=== PATIENT | male | born 1955 | race Caucasian/White ===

== ENCOUNTER 2018-06-26 10:12 | Outpatient (CLI) | payer OTHER, SELFPAY ==
[2018-06-26 12:38] LABS: Abs Immature Grans 0.03 k/cumm (0.0-0.09); Absolute Basophil Count 0.03 k/cumm (0.0-0.2); Absolute Eosinophil Count 0.18 k/cumm (0.0-0.7); Absolute Lymphocyte Count 2.25 k/cumm (1.2-3.4); Absolute Monocyte Count 0.64 k/cumm (0.11-0.7); Absolute Neutrophil Count 3.48 k/cumm (1.2-6.7); Basophils % 0.5; Eosinophils % 2.7; HCT 43.8 % (40.0-50.0); HGB 14.3 g/dL (13.5-17.5); Immature Grans % 0.5; Mean Corp. HGB Concentration 32.6 g/dL (32.0-36.0); Mean Corpuscular Hemoglobin 28.2 pg (27.0-33.0); Mean Corpuscular Volume 86.4 fL (80-95); Mean Platelet Volume 9.6 fL (8.0-11.0); Monocytes % 9.7; Neutrophils % 52.6; Platelet Count 256 x1000/uL (130-400); RBC 5.07 m/cumm (4.50-6.00); RBC Distribution Width 14.7 % (11.8-14.1); White Blood Cell Count 6.61 k/cumm (4.4-10.8)
[2018-06-26 13:11] LABS: ALT 28 U/L (12-78); AST 19 U/L (15-37); Albumin 3.7 g/dL (3.4-5.0); Alkaline Phosphatase 85 U/L (46-116); Anion Gap 6.4 mmol/L (3-11); BUN 17 mg/dL (7-18); Bilirubin, Total 0.6 mg/dL (0.2-1.0); CO2 31.6 mmol/L (21.0-32.0); CREATININE 1.21 mg/dL (0.70-1.30); Calcium 9.5 mg/dL (8.5-10.1); Chloride 101 mmol/L (98-107); Glucose 122 mg/dL (70-100); Potassium 4.4 mmol/L (3.5-5.1); Sodium 139 mmol/L (136-145); Total Protein 7.3 g/dL (6.4-8.2)
[2018-06-27 14:34] LABS: PSA, Screening 1.5 ng/ml (0-4.5)
== END 2018-06-26 10:32 ==
PROVIDERS: PCP Internal Medicine; Visit Provider Internal Medicine
DX: Z00.00 Encounter for general adult medical examination without abnormal findings (principal); E11.9 Type 2 diabetes mellitus without complications; Z12.5 Encounter for screening for malignant neoplasm of prostate
CPT/HCPCS: 36415; 80053; 84153; 85025

== ENCOUNTER 2018-12-23 09:04 | Outpatient (CLI) | payer OTHER, SELFPAY ==
[2018-12-23 11:29] LABS: Calculated LDL 111 mg/dL; Cholesterol 186 mg/dL (50-200); HDL Cholesterol 65 mg/dL (40-60); Triglyceride 54 mg/dL (30-150)
[2018-12-23 11:31] LABS: Hemoglobin A1C 7.8 % (4.5-6.2)
== END 2018-12-23 09:24 ==
PROVIDERS: PCP Internal Medicine; Visit Provider Internal Medicine
DX: E11.9 Type 2 diabetes mellitus without complications (principal)
CPT/HCPCS: 36415; 80061; 83036

== ENCOUNTER 2019-03-31 08:02 | Day surgery (SDC) | payer OTHER, SELFPAY ==
--- NOTE | 2019-03-31 08:07 | W.COLOREPORT ---
Date of service: 03/31/19 Time of Service: : Colonoscopy Report Date of procedure: 03/31/19 Pre-op diagnosis general: colon cancer screening, family history of colon cancer Post-op diagnosis procedure note: other (polyps and diverticulosis) Procedure: Colonoscopy with polypectomy Surgeon: Shannon Rasheed Anesthesia proc note operative: other (General/ ASA 2/Adalberto Joseph, INA) Estimated blood loss (mL): 3 Pathology: other (Transverse polyps x2) Complications: None Disposition: same day Indications: The patient is here for Colonoscopy pre-op. His last screening was in 2008 and was unremarkable. He has a family history of colon cancer in his mother. He has not had any bowel habit changes. Prep: Miralax/Dulcolax Procedure Start Time: : Procedure End Time: :50 Retraction Time: 20 minutes Findings: 2 small polyps mild iniguez diverticulosis Procedure Description: After informed consent was obtained the patient was taken to the procedure room and placed in a left decubitous position. Monitors were applied and a time out was done. The patients name, date of , procedure, allergies to medications and metal in their body was reviewed. The patient was then sedated. Once sedated and comfortable a rectal exam was done. External exam was normal. Internal exam revealed a normal sphincter tone and no palpable masses. The prostate felt smooth. The scope was then introduced and retro-flexed. No internal hemorrhoids, masses or polyps were identified on retro-flexion. The scope was then advanced to the cecum without difficulty. The TI and appendiceal orifice were identified. The prep was adequate. The scope was then slowly retracted over 20 minutes back into the rectum. Polyps were removed with cold forceps in the Transverse colon. There was mild iniguez-diverticulosis noted as well. The scope was removed and the patient was woken up and taken back to Same day surgery in stable condition. The patient tolerated the procedure well and there were no immediate complications. Follow up: The patient should follow up in 3-5 years unless they develop changes in bowel habits or other new gastrointestinal complaints.
--- NOTE | 2019-03-31 08:08 | PDOC.DSDIS_ITS ---
Discharge Plan Disposition Patient Disposition: HOME Condition: Good Discharge Details Reason For Visit: colon cancer screening Attending Provider: Shannon Rasheed Primary Care Provider: Charu Torres Home Meds and New Rx's Prescriptions: Continued omega-3 fatty acids [Fish Oil Concentrate] 1,000 mg capsule 1,000 mg PO DAILY RF: 0 vitamin B complex [B Complex-Vitamin B12] Tablet 1 tab PO DAILY RF: 0 glipizide 5 mg tablet extended release 24hr 5 mg PO DAILY Qty: 90 RF: 4 metformin 1,000 mg tablet 1,000 mg PO BID Qty: 180 RF: 3 (DME) OneTouch Ultra Blue Test Strip strip See Dose Instructions .ROUTE .MEDSUPPLY Qty: 100 RF: 2 CertaVite Senior-Antioxidant 1 EACH tablet 1 ea PO DAILY Qty: 100 RF: 4 (DME) lancets [OneTouch UltraSoft Lancets] misc 1 ea Miscellaneous DAILY Qty: 100 RF: 3 pantoprazole 40 mg tablet,delayed release (DR/EC) 40 mg PO DAILY PRN Qty: 90 RF: 4 Discontinued polyethylene glycol 3350 17 gram/dose powder 238 g PO ONCE Qty: 238 RF: 0 bisacodyl [Dulcolax (bisacodyl)] 5 mg tablet,delayed release (DR/EC) 5 mg PO ONCE Qty: 4 RF: 0 Discharge Instructions Instructions: Diverticulosis (DC), Colorectal Polyps (DC) Additional Instructions: Findings: 2 small polyps mild diverticulosis Follow up: 3-5 years depending on pathology results Please call if you develop: fevers >101.5 Nausea or Vomiting Abdominal pain that is not transient DAY SURGERY UNIT POST ENDOSCOPY INSTRUCTIONS 1. Because there will be medication in your system for the next 24 hours, you may feel a little sleepy. Your coordination will be affected. Therefore: a. Do not drive or operate dangerous equipment for 24 hours. b. Do not drink alcohol beverages for 24 hours (not even beer). c. Plan to go home and rest for the day. 2. Generally there are no restrictions on your activity after a day or so has gone by, but you may feel a bit fatigued for a few days. 3 After you arrive home you may have a light meal and return to a normal diet as you can tolerate it without feeling sick to your stomach. 4. After surgery, you may feel pain or discomfort. This should be only transie nt, but if it persists please contact your doctor. 5. If there are any questions regarding the findings of your procedure, please feel free to contact your doctor. 6. If you are unable to contact your doctor with a problem, contact the hospital at [phone]. 7. Continue all your regular medications unless directed otherwise. I understand the above instructions and have no questions. Signature of Patient or Responsible Adult Escort Date/Time Name of Responsible Adult Escort Signature of Nurse Date/Time Activity:: Activity as Tolerated Diet:: high Fiber diet Discharge Orders Discharge Orders: Discharge Order (Routine); Ordered 03/31/19 Ordered By: Shannon Rasheed DS: Diagnosis Discharge Diagnosis (1) Colorectal polyps: Status: Acute (2) Diverticulosis: Status: Acute
[2019-03-31 08:19] VITALS: BP 131/83; PULSE 55; RESP 18; TEMP 36.7; O2SAT 95
[2019-03-31] MEDS: Lactated Ringers 1,000 ML 80 ML IV (08:26)
--- NOTE | 2019-03-31 09:37 | BOWEL_PTH ---
PATIENT: Sukhdeep Turner LOC: [facility] U#:[id number] AGE/SX: 64/M ROOM: RE03/31/[address]: Shannon Rasheed MD : [id number] BED: DIS: 03/31/2019 SPEC #: [id number] RECD: 03/31/19 12:26 STATUS: CARON REQ #: [id number] ANT: 03/31/19 09:[address]: Shannon Rasheed DEPT: Surgical Specimen RECD BY: Rocio Serna ENTERED: 03/31/19 12:27 SP TYPE: Bowel OTHR DR: Charu Becerril MD Tissues: 1 - BIOPSY BOWEL Procedures: GROSS AND MICRO LEVEL 4 Comments: [id number]
[2019-03-31 10:30] VITALS: BP 128/73; PULSE 53; RESP 16; TEMP 36.5; O2SAT 96
== END 2019-03-31 10:50 | disposition home or self-care (01) ==
PROVIDERS: PCP Internal Medicine; Visit Provider Surgery
PROC: 0DJD8ZZ Inspection of Lower Intestinal Tract, Via Natural or Artificial Opening Endoscopic (ICD-10-PCS; CPT 45378; principal; 2019-03-31 09:30)
DX: Z12.11 Encounter for screening for malignant neoplasm of colon (principal); D12.3 Benign neoplasm of transverse colon; K57.30 Diverticulosis of large intestine without perforation or abscess without bleeding; Z80.0 Family history of malignant neoplasm of digestive organs; K21.9 Gastro-esophageal reflux disease without esophagitis; E11.9 Type 2 diabetes mellitus without complications; Z79.84 Long term (current) use of oral hypoglycemic drugs
CPT/HCPCS: 45380; 88305; J2704

== ENCOUNTER 2019-04-14 11:25 | Outpatient (CLI) | payer OTHER, SELFPAY ==
--- NOTE | 2019-04-14 09:46 | DI.RAD_ITS ---
EXAM: XR CHEST 2V PA LATERAL CLINICAL HISTORY: cough 3-4 months, UPPER RESPIRATORY INFECTION, J06.9. TECHNIQUE: 2D digital imaging was performed. COMPARISON: CHEST 2 VIEWS PA,LAT from 12/12/2011 FINDINGS: LUNGS: Clear. No pleural abnormality seen. HEART: Normal. MEDIASTINUM: Normal. OTHER FINDINGS:Normal. BONE:Normal. IMPRESSION: No acute pulmonary findings.
== END 2019-04-14 11:45 ==
PROVIDERS: PCP Internal Medicine; Visit Provider Internal Medicine
DX: R05 Cough (principal); J06.9 Acute upper respiratory infection, unspecified
CPT/HCPCS: 71046

== ENCOUNTER 2020-01-05 02:17 | Outpatient (CLI) | payer MEDICARE, SELFPAY ==
[2020-01-05 13:02] LABS: CREATININE 1.32 mg/dL (0.70-1.30); Estimated GFR 54.27 (mL/min/1.73m2); Potassium 4.5 mmol/L (3.5-5.1)
[2020-01-05 13:14] LABS: Hemoglobin A1C 9.6 % (<5.7)
== END 2020-01-05 02:37 ==
PROVIDERS: PCP Nurse Practitioner; Visit Provider Nurse Practitioner
DX: E11.65 Type 2 diabetes mellitus with hyperglycemia (principal); I10 Essential (primary) hypertension
CPT/HCPCS: 36415; 82565; 83036; 84132

== ENCOUNTER 2020-04-27 03:34 | Outpatient (CLI) | payer MEDICARE, SELFPAY ==
--- NOTE | 2020-04-27 14:00 | NS.NUTBLAN_ITS ---
ASSESSMENT: Sukhdeep ( 65 y/o M) presents with a referral from [facility] for nutritional counseling r/t DM and elevated BG levels. He is accompanied by his who helped with diet hx and assists him with some communication r/t hearing loss. His main concerns today are his recent A1c of 9.3 and a desire to lose weight. Currently weighs 233lbs. His IBW is 172 lbs . he is on glipizide 5 mg BID, Metformin 1000mg BID and just started Jardiance 10mg q am one week ago with some reluctance. This new med regimen seems to be helping. Finger stick at this encounter revealed 132mg/dl ~ 2hrs postprandial (WNL). Noted: c/o blurred vision. Patient is very interested in staying off insulin tx in the future. INTERVENTION: Educated patient and on CHO counting w/ recommendation of <60g/meal period and ~ 180 total CHO/day. Reiterated this concept with demonstration of carbs and cals phone anita and had patient practice using his one day food recall. Recommended he download this anita to help w/ CHO and calorie counting to achieve BG and weight loss goals. Established a goal weight of 200lbs with daily caloric intake of 4035-8256 k/sugey. Recommended visit with supercharger mechanic to rule out retinopathy as Sukhdeep reports hx cataracts. Reviewed risks and benefits of [facility] diet compliance. Reviewed desired ranges for BG levels and recommended finger sticks 4x/day for one week with food record to help spot trends in BG r/t activity and food choices. Explained the benefits of the new medication. MONITOR/EVAL: Sukhdeep will utilize principals of CHO counting, phone anita technology, regular finger sticks and food record to help with weight loss and BG levels. He should return for F/U appointment to evaluate progress in 30 days. He has agreed check in with questions ( which he did today) and schedule another appointment. He may be a good candidate for CGM. Time Spent face to Face: 60 minutes/ 4 Units
== END 2020-04-27 03:35 | disposition home or self-care (01) ==
PROVIDERS: PCP Nurse Practitioner; Visit Provider Dietitian, Registered
DX: E11.65 Type 2 diabetes mellitus with hyperglycemia (principal); Z79.84 Long term (current) use of oral hypoglycemic drugs; Z71.3 Dietary counseling and surveillance
CPT/HCPCS: 97802

== ENCOUNTER 2020-08-03 03:13 | Outpatient (CLI) | payer MEDICARE, SELFPAY ==
[2020-08-03 12:55] LABS: Hemoglobin A1C 7.6 % (<5.7)
[2020-08-03 17:22] LABS: PSA, Screening 1.1 ng/mL (0.0-4.5)
== END 2020-08-03 03:14 | disposition home or self-care (01) ==
LOC: LOS 03:13
PROVIDERS: PCP Nurse Practitioner; Visit Provider Nurse Practitioner
DX: E11.65 Type 2 diabetes mellitus with hyperglycemia (principal); R35.1 Nocturia; Z12.5 Encounter for screening for malignant neoplasm of prostate
CPT/HCPCS: 36415; 84153; 83036

== ENCOUNTER 2020-08-23 07:23 | Day surgery (SDC) | payer MEDICARE, SELFPAY ==
[2020-08-23 07:38] VITALS: BP 155/92; PULSE 49; RESP 16; TEMP 36.1; O2SAT 96
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
[2020-08-23] MEDS: Tropicam./Phenyleph. (1/2.5%) 5 ML BTL OD ×3 (07:47→08:03)
[2020-08-23 08:15] VITALS: BMI 32.2
[2020-08-23] MEDS: Tetracaine 0.5% 4 ML BTL OD (09:03)
[2020-08-23] MEDS: Balanced Salt Soln.-PLUS 500 ML BAG (09:04)
[2020-08-23] MEDS: Duovisc Viscoelastic System EACH 1 EACH (09:05)
[2020-08-23] MEDS: Lidocaine 1% Pres-Free 5 ML VIAL (09:05)
[2020-08-23] MEDS: Lidocaine 2% Jelly 6 ML SYR (09:06)
[2020-08-23] MEDS: Povidone-Iodine Ophth 30 ML BTL (09:08)
[2020-08-23] MEDS: Trypan Blue 0.06% 0.5 ML SYR (09:09)
--- NOTE | 2020-08-23 09:11 | W.ANESPOSTOP ---
Postoperative Evaluation Date, Time and Location Date Performed: 08/23/20 Time Performed: 09:31 Patient Location: Day Surgery Unit Vital Signs Most Recent Imported Vital Signs: Most Recent Vital Signs Temp Pulse Resp BP Pulse Ox 36.1 C L 49 L 16 155/92 H 96 08/23/20 07:38 08/23/20 07:38 08/23/20 07:38 08/23/20 07:38 08/23/20 07:38 Most Recent Manually Entered Vital Signs: Adult Blood Pressure: 143/79 Heart Rate: 47 Respirations: 16 Oxygen Saturation (%): 97 Temperature (C): 36.8 C Pain Score (0-10 Scale): 0 Pain Score Most Recent Pain Score: Most Recent Pain Score Pain Level 0 08/23/20 07:38 Assessment Mental Status: Awake (Alert & Oriented to Patient Baseline) Airway and Respiratory Function: Patent airway with normal (patient baseline) respiratory exam Cardiovascular Function: Hemodynamically Stable Hydration Status: Adequately Hydrated Nausea & Vomiting: No Nausea or Vomiting Pain: Pt. Denies Any Pain Peripheral Nerve Block: Other (Local by Dr. Ross)
--- NOTE | 2020-08-23 09:30 | W.PM.DSUDISC ---
Discharge Plan Disposition Patient Disposition: HOME Condition: Good Discharge Details Reason For Visit: Cataract Attending Provider: Ignacio Ross Primary Care Provider: Carol Griffin Home Meds and New Rx's Prescriptions: No Action omega-3 fatty acids [Fish Oil Concentrate] 1,000 mg capsule 1,000 mg PO DAILY RF: 0 vitamin B complex [B Complex-Vitamin B12] Tablet 1 tab PO DAILY RF: 0 Jardiance 10 mg tablet 10 mg PO QAM Qty: 90 RF: 4 (DME) lancets [Accu-Chek Multiclix Lancet] Misc See Rx Instructions .ROUTE .MEDSUPPLY Qty: 100 RF: 4 CertaVite Senior 1 EACH tablet 1 ea PO DAILY Qty: 100 RF: 4 pantoprazole 40 mg tablet,delayed release (DR/EC) 40 mg PO DAILY PRN Qty: 90 RF: 4 chlorthalidone 25 mg tablet 25 mg PO DAILY Qty: 90 RF: 3 glipizide 5 mg tablet 5 mg PO BID Qty: 180 RF: 3 metformin 1,000 mg tablet 1,000 mg PO BID Qty: 180 RF: 3 (DME) Accu-Chek SmartView Test Strip Strip See Rx Instructions .ROUTE .MEDSUPPLY Qty: 100 RF: 4 Discharge Instructions Stand Alone Forms: Post-op Topical Cataract, Dana Pierre (DSU) Discharge Orders Discharge Orders: Discharge Order (Routine); Ordered 08/23/20 Ordered By: Ignacio Ross DS: Diagnosis Discharge Diagnosis (1) Posterior subcapsular age-related cataract, right eye: Status: Resolved (2) Cortical cataract of right eye: Status: Resolved (3) Nuclear sclerotic cataract of right eye: Status: Resolved
--- NOTE | 2020-08-23 09:31 | ROE_ITS ---
Date of service: 08/23/20 Time of Service: 09:31 Operative Note Operative Note DATE OF PROCEDURE: 08/23/20 PRE-OP DIAGNOSIS: Nuclear/cortical/posterior subcapsular cataract, right eye Poorly dilating pupil, right eye Poor red reflex, right eye secondary to cataract POST-OP DIAGNOSIS: same PROCEDURE: Cataract extraction using phacoemulsification with intraocular lens implant, right eye, with pupillary dilation using Malyugin Ring and capsular staining using Vision Blue SURGEON: Ignacio Ross Refer to Anesthesia Record ESTIMATED BLOOD LOSS: 0 PATHOLOGY: none sent COMPLICATIONS: None Patient was transported to: same day Patient's condition: stable Implants: Rene and Rene / [employer] Tecnis [id number] Indications: Progressive decreased vision due to cataract, right eye Procedure Description: CATARACT SURGERY OPERATIVE REPORT PREOPERATIVE DIAGNOSIS: 1. Nuclear/cortical/posterior subcapsular cataract, right eye 2. Poorly dilating pupil, right eye 3. Poor red reflex, right eye POSTOPERATIVE DIAGNOSIS: Same OPERATION: 1. Cataract extraction using phacoemulsification with posterior chamber intraocular lens implant, right eye. 2. Pupillary dilation and iris stabilization using Malyugin Ring 3. Capsular staining with VIsion Blue IOL: IOL Candy Polisher/Model: Rene & Rene / COURTNEY Tecnis [id number] IOL Power: + 18.0 diopters IOL Serial Number: [id number] Optic Diameter: 6.0mm Haptic/Overall Diameter: 13.0mm PHACO INFO: Jean Claude Cent[employer]ion Vision System with OZil and Active Fluidics Cumulative Dispersed Energy (CDE): 21.02 seconds SURGEON: Ignacio Ross MD, DANNY ANESTHESIA: Monitored Anesthesia Care (MAC), with local sub-tenon's anesthetic infiltration COMPLICATIONS: None SPECIMENS: None INDICATIONS FOR PROCEDURE: The patient is a 65-year-old gentleman with history of progressive decreased vision in his right eye. He is noted to have significant nuclear/cortical/posterior subcapsular cataract in the right eye. The option of cataract surgery was offered to the patient and he wished to proceed. PROCEDURE: The correct surgical eye was identified and marked as the right eye and the pupil was dilated in the preoperative area using mydriatics and cycloplegics. The dilated pupil size was 4.5 mm. He elected to proceed without oral sedation. The patient was brought to the operating room where cardiopulmonary monitoring was instituted and surgical time-out was performed, confirming the correct operative eye and IOL power. Topical anesthesia was administered and ophthalmic povidone-iodine 5% was instilled into the conjunctival fornices. Lidocaine gel was applied to the cornea and the kiah-ocular area was prepped with Betadine 10% solution and draped in the usual sterile fashion for intraocular surgery, including an aperture drape. A Tegaderm transparent film dressing was cut in half and used to cover the lashes and lid margins. Care was taken to sequester the lashes and lid margins under the Tegaderm dressing. A lid speculum was placed between the lids of the operative eye and the Danielle-Sonia operating microscope was maneuvered into position. Spencer scissors were then used to make a conjunctival buttonhole approximately 6mm posterior to the limbus in the inferonasal quadrant. Blunt dissection was carried out to expose bare sclera, and a blunt-tipped sub-tenon?s anesthesia cannula was introduced and passed posteriorly along the globe where non-pres erved plain lidocaine was injected into posterior sub-Tenon?s space. A sideport knife was used to make a paracentesis port inferiortemporally. Intraocular phenylephrine/lidocaine was injected into the anterior chamber. Air was then injected into anterior chamber, followed by Vision Blue, which was painted over the anterior capsule and then irrigated out with BSS. The anterior chamber was then filled with viscoelastic. A 2.4mm keratome knife was used to create a half-thickness groove at the limbus and then to construct a three-plane near- clear corneal tunnel extending 2.0mm into clear cornea superiortemporally. A 7.0 mm Malyugin Ring was then inserted into the pupillary space and engaged with the Kuglen hook. A flap was raised on the anterior capsule and capsulorhexis forceps were used to complete a continuous curvilinear capsulorhexis of 5.5 mm. Balanced salt solution was then used to perform cortical cleaving hydrodissection and nuclear hydrodelineation until the lens could be freely rotated within the capsular bag. The lens nucleus was then disassembled and removed within the capsular bag and iris plane using phacoemulsification. Residual cortical material was removed using the 45-degree angled silicone I/A tip with 0.3mm port. The posterior capsule was carefully polished to remove as much residual lens epithelial cells as safely possible. The capsular bag was then inflated and the anterior chamber deepened with viscoelastic. The lens implant described above was inserted into the capsular bag using the COURTNYE Winston Injector. A Kuglen hook was used to dial the IOL into position. The Malyugin Ring was removed in the reverse order of its insertion. Residual viscoelastic was then removed first from posterior to the IOL, then from the anterior chamber using the I/A handpiece. The lens implant was noted to center nicely within the capsular bag. The incisions were stromally hydrated, and the anterior chamber was reformed using BSS. Then 0.5cc of moxifloxacin 1.0mg/ml were injected into the capsular bag and anterior chamber. The incisions were checked with a Weck spear and found to be secure. Several drops of ophthalmic povidone-iodine 5% were then applied to the eye followed by two drops of Imprimis combination prednisoone/moxifloxacin/nepafenac solution. The drapes were removed and a clear plastic protective eye shield was placed over the eye. The patient was then returned to Same Day Surgery in stable condition.
[2020-08-23 09:32] VITALS: BP 143/79; PULSE 47; RESP 16; TEMPC 36.8; O2SAT 97
[2020-08-23 09:35] VITALS: BP 143/79; PULSE 47; RESP 16; TEMP 36.8; O2SAT 98
== END 2020-08-23 09:45 | disposition home or self-care (01) ==
PROVIDERS: PCP Nurse Practitioner; Visit Provider Ophthalmology
PROC: (CPT 66982; principal; 2020-08-23 09:00)
DX: H25.041 Posterior subcapsular polar age-related cataract, right eye (principal); H57.03 Miosis
CPT/HCPCS: 66982; V2632

== ENCOUNTER 2020-09-06 08:05 | Day surgery (SDC) | payer MEDICARE, SELFPAY ==
[2020-09-06 08:24] VITALS: BP 134/77; PULSE 52; RESP 18; TEMP 36.7; O2SAT 95
[2020-09-06] MEDS: Tropicam./Phenyleph. (1/2.5%) 5 ML BTL OS ×3 (08:39→08:49)
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
[2020-09-06 09:20] VITALS: BMI 32.0
[2020-09-06] MEDS: Balanced Salt Soln.-PLUS 500 ML BAG (10:11)
[2020-09-06] MEDS: Tetracaine 0.5% 4 ML BTL OS (10:11)
[2020-09-06] MEDS: Duovisc Viscoelastic System EACH 1 EACH (10:12)
[2020-09-06] MEDS: Lidocaine 1% Pres-Free 5 ML VIAL (10:12)
[2020-09-06] MEDS: Lidocaine 2% Jelly 6 ML SYR (10:13)
[2020-09-06] MEDS: Povidone-Iodine Ophth 30 ML BTL (10:14)
--- NOTE | 2020-09-06 10:28 | W.PM.DSUDISC ---
Discharge Plan Disposition Patient Disposition: HOME Condition: Good Discharge Details Reason For Visit: CATARACT Attending Provider: Ignacio Ross Primary Care Provider: Carol Griffin Home Meds and New Rx's Prescriptions: No Action omega-3 fatty acids [Fish Oil Concentrate] 1,000 mg capsule 1,000 mg PO DAILY RF: 0 vitamin B complex [B Complex-Vitamin B12] Tablet 1 tab PO DAILY RF: 0 Jardiance 10 mg tablet 10 mg PO QAM Qty: 90 RF: 4 (DME) lancets [Accu-Chek Multiclix Lancet] Misc See Rx Instructions .ROUTE .MEDSUPPLY Qty: 100 RF: 4 CertaVite Senior 1 EACH tablet 1 ea PO DAILY Qty: 100 RF: 4 pantoprazole 40 mg tablet,delayed release (DR/EC) 40 mg PO DAILY PRN Qty: 90 RF: 4 chlorthalidone 25 mg tablet 25 mg PO DAILY Qty: 90 RF: 3 glipizide 5 mg tablet 5 mg PO BID Qty: 180 RF: 3 metformin 1,000 mg tablet 1,000 mg PO BID Qty: 180 RF: 3 (DME) Accu-Chek SmartView Test Strip Strip See Rx Instructions .ROUTE .MEDSUPPLY Qty: 100 RF: 4 Discharge Instructions Stand Alone Forms: Post-op Topical Cataract, Dana Pierre (DSU) Discharge Orders Discharge Orders: Discharge Order (Routine); Ordered 09/06/20 Ordered By: Ignacio Ross DS: Diagnosis Discharge Diagnosis (1) Posterior subcapsular age-related cataract of left eye: Status: Resolved (2) Nuclear sclerotic cataract of left eye: Status: Resolved
--- NOTE | 2020-09-06 10:29 | W.PM.OP ---
Date of service: 09/06/20 Time of Service: 10:29 Operative Note Operative Note DATE OF PROCEDURE: 09/06/20 PRE-OP DIAGNOSIS: Nuclear/posterior subcapsular cataract, left eye POST-OP DIAGNOSIS: same PROCEDURE: Cataract extraction using phacoemulsification with intraocular lens implant, left eye SURGEON: Ignacio Ross ANESTHESIA TYPE: Local By Surgeon and MAC Refer to Anesthesia Record PATHOLOGY: none sent COMPLICATIONS: None Patient was transported to: same day Patient's condition: stable Implants: Rene [employer] Rene [employer] / [employer] Tecnis [id number] Indications: Progressive decreased vision due to cataract, left eye Procedure Description: CATARACT SURGERY OPERATIVE REPORT PREOPERATIVE DIAGNOSIS: Nuclear/posterior subcapsular cataract, left eye POSTOPERATIVE DIAGNOSIS: Same OPERATION: Cataract extraction using phacoemulsification with posterior chamber intraocular lens implant, left eye. IOL: IOL Public Health Dentist/Model: [employer] / COURTNEY Tecnis [id number] IOL Power: + 18.0 diopters IOL Serial Number: [id number] Optic Diameter: 6.0mm Haptic/Overall Diameter: 13.0mm PHACO INFO: Jean Claude Symphonyurion Vision System with OZil and Active Fluidics Cumulative Dispersed Energy (CDE): 8.56 seconds SURGEON: Ignacio Ross MD, DANNY ANESTHESIA: Monitored Anesthesia Care (MAC), with local sub-tenon's anesthetic infiltration COMPLICATIONS: None SPECIMENS: None INDICATIONS FOR PROCEDURE: The patient is a 65-year-old gentleman with history of diminished visual acuity in both eyes secondary to the development of bilateral nuclear and posterior subcapsular cataract. He has already undergone cataract surgery in the right eye and is doing well postoperatively. He now presents for cataract surgery in the left eye. PROCEDURE: The correct surgical eye was identified and marked as the left eye and the pupil was dilated in the preoperative area using mydriatics and cycloplegics. The dilated pupil size was 7.0 mm. Oral sedation was administered in the form of an Imprimis MKO Melt (midazolam 3mg/ketamine 25mg/ondansetron 2mg). The patient was brought to the operating room where cardiopulmonary monitoring was instituted and surgical time-out was performed, confirming the correct operative eye and IOL power. Topical anesthesia was administered and ophthalmic povidone-iodine 5% was instilled into the conjunctival fornices. Lidocaine gel was applied to the cornea and the kiah-ocular area was prepped with Betadine 10% solution and draped in the usual sterile fashion for intraocular surgery, including an aperture drape. A Tegaderm transparent film dressing was cut in half and used to cover the lashes and lid margins. Care was taken to sequester the lashes and lid margins under the Tegaderm dressing. A lid speculum was placed between the lids of the operative eye and the Danielle-Sonia operating microscope was maneuvered into position. Spencer scissors were then used to make a conjunctival buttonhole approximately 6mm posterior to the limbus in the inferonasal quadrant. Blunt dissection was carried out to expose bare sclera, and a blunt-tipped sub-tenon?s anesthesia cannula was introduced and passed posteriorly along the globe where non-preserved plain lidocaine was injected into posterior sub-Tenon?s space. A sideport knife was used to make a paracentesis port superior/superiortemporally. Intraocular phenylephrine/lidocaine was injected into the anterior chamber. The anterior chamber was then filled with viscoelastic. A 2.4mm keratome knife was used to create a half-thickness groove at the limbus and then to construct a three-plane near-clear corneal tunnel extending 2.0mm into clear cornea in the temporal position. . A flap was raised on the anterior capsule and capsulorhexis forceps were used to complete a continuous curvilinear capsulorhexis of 5.0 mm. Balanced salt solution was then used to perform cortical cleaving hydrodissection and nuclear hydrodelineation until the lens could be freely rotated within the capsular bag. The lens nucleus was then disassembled and removed within the capsular bag and iris plane using phacoemulsification. Residual cortical material was removed using the 45-degree angled silicone I/A tip with 0.3mm port. The posterior capsule was carefully polished to remove as much residual lens epithelial cells as safely possible. The capsular bag was then inflated and the anterior chamber deepened with viscoelastic. The lens implant described above was inserted into the capsular bag using the COURTNEY [place] Injector. A Kuglen hook was used to dial the IOL into position. Residual viscoelastic was then removed first from posterior to the IOL, then from the anterior chamber using the I/A handpiece. The lens implant was noted to center nicely within the capsular bag. The incisions were stromally hydrated, and the anterior chamber was reformed using BSS. Then 0.5cc of moxifloxacin 1.0mg/ml were injected into the capsular bag and anterior chamber. The incisions were checked with a Weck spear and found to be secure. Several drops of ophthalmic povidone-iodine 5% were then applied to the eye followed by two drops of Imprimis combination prednisolone/moxifloxacin/nepafenac solution. The drapes were removed and a clear plastic protective eye shield was placed over the eye. The patient was then returned to Same Day Surgery in stable condition.
[2020-09-06 10:40] VITALS: BP 134/76; PULSE 58; RESP 18; TEMP 36.6; O2SAT 95
--- NOTE | 2020-09-06 10:44 | W.ANESPOSTOP ---
Postoperative Evaluation Date, Time and Location Date Performed: 09/06/20 Time Performed: 10:44 Patient Location: Day Surgery Unit Vital Signs Most Recent Imported Vital Signs: Most Recent Vital Signs Temp Pulse Resp BP Pulse Ox 36.6 C 58 L 18 134/76 95 09/06/20 10:40 09/06/20 10:40 09/06/20 10:40 09/06/20 10:40 09/06/20 10:40 Pain Score Most Recent Pain Score: Most Recent Pain Score Pain Level 0 09/06/20 10:40 Assessment Mental Status: Awake (Alert & Oriented to Patient Baseline) Airway and Respiratory Function: Patent airway with normal (patient baseline) respiratory exam Cardiovascular Function: Hemodynamically Stable Hydration Status: Adequately Hydrated Nausea & Vomiting: No Nausea or Vomiting Pain: Pt. Denies Any Pain Peripheral Nerve Block: Patient did not receive a nerve block
== END 2020-09-06 10:53 | disposition home or self-care (01) ==
PROVIDERS: PCP Nurse Practitioner; Visit Provider Ophthalmology
PROC: (CPT 66984; principal; 2020-09-06 09:45)
DX: H25.042 Posterior subcapsular polar age-related cataract, left eye (principal); E11.9 Type 2 diabetes mellitus without complications
CPT/HCPCS: 66984; V2632

== ENCOUNTER 2021-01-07 01:13 | Outpatient (CLI) | payer MEDICARE, SELFPAY ==
[2021-01-07 13:21] LABS: CREATININE 1.3 mg/dL (0.70-1.30); Estimated GFR 55.06 (mL/min/1.73m2); Potassium 4.3 mmol/L (3.5-5.1)
[2021-01-07 14:05] LABS: Hemoglobin A1C 8.4 % (<5.7)
[2021-01-07 14:55] LABS: COMMENT (LAB VIEW ONLY) 74.85 mg/dL; Microalb ug/mg Crea 11.4 ug/mg Cr
== END 2021-01-07 01:14 | disposition home or self-care (01) ==
PROVIDERS: PCP Nurse Practitioner; Visit Provider Nurse Practitioner
DX: E11.9 Type 2 diabetes mellitus without complications (principal); I10 Essential (primary) hypertension
CPT/HCPCS: 36415; 82043; 82565; 82570; 83036; 84132

== ENCOUNTER 2021-07-05 05:09 | Outpatient (CLI) | payer MEDICARE, SELFPAY ==
[2021-07-05 12:48] LABS: Anion Gap 7.1 mmol/L (3-11); BUN 25 mg/dL (7-18); CO2 30.9 mmol/L (21.0-32.0); CREATININE 1.3 mg/dL (0.70-1.30); Calcium 9.2 mg/dL (8.5-10.1); Chloride 99 mmol/L (98-107); Glucose 169 mg/dL (74-106); Potassium 4.5 mmol/L (3.5-5.1); Sodium 137 mmol/L (136-145)
== END 2021-07-05 05:10 | disposition home or self-care (01) ==
LOC: LOS 05:09
PROVIDERS: PCP Nurse Practitioner; Visit Provider Nurse Practitioner
DX: I10 Essential (primary) hypertension (principal); E11.65 Type 2 diabetes mellitus with hyperglycemia
CPT/HCPCS: 36415; 80048; 83036

== ENCOUNTER 2022-01-12 02:56 | Outpatient (CLI) | payer MEDICARE, SELFPAY ==
[2022-01-12 13:09] LABS: COMMENT (LAB VIEW ONLY) 37.88 mg/dL; Microalb ug/mg Crea 6.1 ug/mg Cr
== END 2022-01-12 02:57 | disposition home or self-care (01) ==
LOC: LOS 02:56
PROVIDERS: PCP Nurse Practitioner Family; Visit Provider Nurse Practitioner
DX: E11.65 Type 2 diabetes mellitus with hyperglycemia (principal)
CPT/HCPCS: 82043; 82570

== ENCOUNTER 2023-03-22 03:24 | Outpatient (CLI) | payer MEDICARE, SELFPAY ==
[2023-03-22 12:13] LABS: HCT 44.8 % (40.0-50.0); MCH 30.2 pg (27.0-33.0); MCHC 33.5 % (32.0-36.0); MCV 90 fL (80-95); MPV 9.4 fL (8.0-11.0); Platelet Count 275 10^3/uL (130-400); RBC 4.97 10^6/uL (4.36-5.78); RDW 14.2 % (11.8-14.1); WBC 7.94 10^3/uL (4.4-10.8)
[2023-03-22 12:27] LABS: ALT 22 U/L (16-63); AST 13 U/L (15-37); Albumin 3.8 g/dL (3.4-5.0); Alkaline Phosphatase 78 U/L (46-116); Anion Gap 6.8 mmol/L (3-11); BUN 25 mg/dL (7-18); Bilirubin, Total 0.7 mg/dL (0.2-1.0); CO2 31.2 mmol/L (21.0-32.0); CREATININE 1.4 mg/dL (0.70-1.30); Calcium 9.9 mg/dL (8.5-10.1); Calculated LDL 113 mg/dL (<100); Chloride 99 mmol/L (98-107); Cholesterol 184 mg/dL (<200); Estimated GFR 54.07 (mL/min/1.73m2); Glucose 144 mg/dL (74-106); HDL Cholesterol 64 mg/dL (40-60); Potassium 4.2 mmol/L (3.5-5.1); Sodium 137 mmol/L (136-145); Total Protein 7.6 g/dL (6.4-8.2); Triglyceride 39 mg/dL (<150)
== END 2023-03-22 03:25 | disposition home or self-care (01) ==
LOC: LOS 03:25
PROVIDERS: PCP Nurse Practitioner Family; Visit Provider Nurse Practitioner Family
DX: E11.65 Type 2 diabetes mellitus with hyperglycemia (principal); K21.00 Gastro-esophageal reflux disease with esophagitis, without bleeding; Z51.81 Encounter for therapeutic drug level monitoring
CPT/HCPCS: 36415; 80053; 80061; 85027

== ENCOUNTER → 2023-08-30 08:38 | Outpatient (BNVA) | payer OTHER, SELFPAY | PROVIDERS: PCP Nurse Practitioner Family; Referring Provider Nurse Practitioner Family; Visit Provider Podiatrist | DX: E11.8 Type 2 diabetes mellitus with unspecified complications (principal); E11.65 Type 2 diabetes mellitus with hyperglycemia; I70.203 Unspecified atherosclerosis of native arteries of extremities, bilateral legs; B35.3 Tinea pedis; G62.9 Polyneuropathy, unspecified; B35.1 Tinea unguium | CPT/HCPCS: 93922 ==

== ENCOUNTER → 2024-01-03 07:57 | Outpatient (BNVA) | payer OTHER, SELFPAY | PROVIDERS: PCP Nurse Practitioner Family; Referring Provider Nurse Practitioner Family; Visit Provider Podiatrist | DX: B35.1 Tinea unguium (principal); B35.3 Tinea pedis; E11.65 Type 2 diabetes mellitus with hyperglycemia; I70.203 Unspecified atherosclerosis of native arteries of extremities, bilateral legs; G62.9 Polyneuropathy, unspecified | CPT/HCPCS: 99213 ==

== ENCOUNTER 2024-03-14 08:43 | Outpatient (CLI) | payer MEDICARE, SELFPAY ==
--- NOTE | 2024-03-14 08:30 | RT.EKG_ITS ---
APPROVED REPORT Exam: Resting ECG Reason for Exam: irregular pulse Patient Location: O HR:57 bpm ECG Measurements Heart Rate 57 AXIS PA 281 P -41 QRSd 133 QRS 13 QT 422 T 42 QTc 411 Conclusion Sinus rhythm...normal P axis, V-rate 50- 99 PVCs Prolonged PA interval...PA >220, V-rate 50- 90
== END 2024-03-14 08:44 | disposition home or self-care (01) ==
LOC: DI.CM 08:44
PROVIDERS: PCP Nurse Practitioner Family; Visit Provider Nurse Practitioner Family
DX: I49.9 Cardiac arrhythmia, unspecified (principal)
CPT/HCPCS: 93010

== ENCOUNTER 2024-03-14 16:45 | Outpatient (REF) | payer MEDICARE, SELFPAY ==
[2024-03-14 17:51] LABS: ALT 19 U/L (16-63); AST 16 U/L (15-37); Albumin 3.8 g/dL (3.4-5.0); Alkaline Phosphatase 80 U/L (46-116); Anion Gap 8.4 mmol/L (3-11); BUN 19 mg/dL (7-18); Bilirubin, Total 0.63 mg/dL (0.2-1.0); CO2 31.6 mmol/L (21.0-32.0); CREATININE 1.4 mg/dL (0.70-1.30); Calcium 9.7 mg/dL (8.5-10.1); Chloride 99 mmol/L (98-107); Estimated GFR 53.74 (mL/min/1.73m2); Glucose 122 mg/dL (74-106); Potassium 4.7 mmol/L (3.5-5.1); Sodium 139 mmol/L (136-145); Total Protein 7.2 g/dL (6.4-8.2)
[2024-03-17 11:20] LABS: HIV-1/2 Ag & Ab Screen Negative (Negative)
[2024-03-17 11:31] LABS: Hepatitis C Ab w Rflx HCV PCR Negative (Negative)
== END 2024-03-14 16:46 | disposition home or self-care (01) ==
LOC: LBN 16:45
PROVIDERS: PCP Nurse Practitioner Family; Visit Provider Nurse Practitioner Family
DX: E11.65 Type 2 diabetes mellitus with hyperglycemia (principal); Z11.59 Encounter for screening for other viral diseases; Z11.4 Encounter for screening for human immunodeficiency virus [HIV]
CPT/HCPCS: 80053; 86803; 87389

== ENCOUNTER → 2024-05-06 07:48 | Outpatient (BNVA) | payer MEDICARE, SELFPAY | PROVIDERS: PCP Nurse Practitioner Family; Visit Provider Podiatrist | DX: E11.65 Type 2 diabetes mellitus with hyperglycemia (principal); I70.203 Unspecified atherosclerosis of native arteries of extremities, bilateral legs; B35.3 Tinea pedis; B35.1 Tinea unguium; G62.9 Polyneuropathy, unspecified | CPT/HCPCS: 99213 ==

== ENCOUNTER → 2024-06-02 13:24 | Outpatient (BNVA) | payer MEDICARE, SELFPAY | PROVIDERS: PCP Nurse Practitioner Family; Referring Provider Nurse Practitioner Family; Visit Provider Student in an Organized Health Care Education/Training Program | DX: Z12.11 Encounter for screening for malignant neoplasm of colon (principal); Z86.0101 Personal history of adenomatous and serrated colon polyps ==

== ENCOUNTER 2024-06-11 09:51 | Day surgery (SDC) | payer MEDICARE, SELFPAY ==
[2024-06-11 10:19] VITALS: BP 137/74; PULSE 45; RESP 18; TEMP 36.5; O2SAT 97
[2024-06-11] MEDS: Lactated Ringers 1,000 ML 80 ML IV (10:43)
[2024-06-11 11:07] VITALS: BMI 32.5
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
[2024-06-11] MEDS: Normal Saline Flush 10 ML SYR IV (12:00)
--- NOTE | 2024-06-11 13:03 | W.COLOREPORT ---
Date of service: 06/11/24 Time of Service: 13:03 Colonoscopy Report Procedure Description: PROCEDURES PERFORMED: 1. Colonoscopy with hot snare polypectomy 2. Cold forcep polypectomy PREOPERATIVE DIAGNOSIS: Surveillance colonoscopy, adenomatous polyps POSTOPERATIVE DIAGNOSIS: Adenomatous polyps, pandiverticulosis, grade 1 internal hemorrhoids SURGEON: Nidia Singh MD INDICATION for procedure: The patient is a 69-year-old man with no symptoms. Due for surveillance colonoscopy. No family history of colon cancer. Personal history of adenomatous polyps previously. Last colonoscopy was 5 years ago. FINDINGS: A small 2-3 mm sessile polyp was removed with cold forceps technique from the cecum. A large 12-15 mm sessile polyp was removed with hot snare from the transverse colon. There were no other polyps. Scattered diverticuli are present across and around the entire colon. No active diverticulitis. No stricture anywhere SURVEILLANCE interval/FOLLOW-UP: 3 years. SPECIMENS: yes EBL: Minimal COMPLICATIONS: None QUALITY of prep: Excellent Procedure in detail: The patient gave written consent and was in agreement with the indications, the potential risks as well as the benefits of the procedure. They were taken to the endoscopy suite and laid in the left lateral decubitus position. A timeout was performed and anesthesia was administered which was tolerated well. I started the procedure. Digital rectal and visual examination was performed and grossly within normal limits. A well-lubricated flexible colonoscope was then introduced and passed without any notable difficulty all the way to the cecum identified by the ileocecal valve and the appendiceal orifice. The scope was then slowly withdrawn with the above-noted findings. The patient tolerated the procedure well and was taken to the PACU in hemodynamically stable condition.
--- NOTE | 2024-06-11 13:05 | W.PM.DSUDISC ---
Date of service: 06/11/24 Discharge Plan Disposition Patient Disposition: Home Condition: Good Discharge Details Attending Provider: Aram Singh Primary Care Provider: Aldo Cosme Home Meds and New Rx's Prescriptions: No Action omega-3 fatty acids [Fish Oil Concentrate] 1,000 mg capsule 1,000 mg PO DAILY vitamin B complex [B Complex-Vitamin B12] Tablet 1 tab PO DAILY Shingrix (PF) 50 mcg/0.5 mL suspension for reconstitution 0.5 ml IM ONCE Qty: 1 1RF Rx Instructions: as a single dose multivitamin Tablet 1 tab PO DAILY pantoprazole 40 mg tablet,delayed release (DR/EC) 40 mg PO DAILY PRN Qty: 90 4RF (DME) Accu-Chek Guide test strips Strip See Rx Instructions .Route Qty: 100 12RF Rx Instructions: BID polyethylene glycol 3350 17 gram/dose powder 238 g PO ONCE Qty: 238 0RF Rx Instructions: take per colonoscopy instructions bisacodyl [Dulcolax (bisacodyl)] 5 mg tablet,delayed release (DR/EC) 5 mg PO ONCE Qty: 4 0RF Rx Instructions: take per colonoscopy instructions chlorthalidone 25 mg tablet 25 mg PO DAILY Qty: 90 3RF glipizide 5 mg tablet 5 mg PO BID Qty: 180 3RF metformin 1,000 mg tablet 1,000 mg PO BID Qty: 180 3RF meclizine 25 mg tablet 25 mg PO BID PRN (Reason: dizziness) Qty: 60 0RF ketoconazole 2 % cream 1 applic topical DAILY Qty: 120 6RF Rx Instructions: Apply to toenails once daily clotrimazole-betamethasone 1-0.05 % cream 1 applic Topical BID Qty: 45 3RF (DME) lancets Misc See Rx Instructions .ROUTE .MEDSUPPLY Qty: 100 4RF Rx Instructions: once daily (DME) blood-glucose meter [Accu-Chek Silvina Plus Meter] Misc See Rx Instructions .Route Qty: 1 0RF Rx Instructions: As directed (DME) Accu-Chek Silvina Plus test strp Strip See Rx Instructions .Route Qty: 100 4RF Rx Instructions: BID testing, dispense brand for meter semaglutide 2 mg/dose (8 mg/3 mL) pen injector 2 mg subcut QWEEK Qty: 9 4RF Discharge Instructions Additional Instructions: FINDINGS: A pretty large polyp was found and removed from your colon. Another tiny 1 was removed from a different spot. They are nothing to worry about but you should have another colonoscopy in 3 years because of this. There are diverticulosis changes throughout your entire colon. These are extremely common, benign and nothing needs to be done about them. Repeat colonoscopy in 3 years. Activity:: Activity as Tolerated Diet:: As Tolerated Discharge Orders Discharge Orders: Discharge Order (Routine); Ordered 06/11/24 Ordered By: Aram Singh
--- NOTE | 2024-06-11 13:14 | BOWEL_PTH ---
PATIENT: Sukhdeep Turner LOC: [facility] U#:[id number] AGE/SX: 69/M ROOM: RE06/11/[address]: Aram Singh : 1955 BED: DIS: 06/11/2024 SPEC #: [id number] RECD: 06/11/24 17:53 STATUS: CARON RE #: [id number] ANT: 06/11/24 13:[address]: Aram Singh DEPT: Surgical Specimen RECD BY: Rocio Serna ENTERED: 06/11/24 17:53 SP TYPE: Bowel OTHR DR: Aldo Richard DNP Tissues: 1 - BIOPSY BOWEL 2 - BIOPSY BOWEL Procedures: GROSS AND MICRO LEVEL 4 Comments: [id number]
[2024-06-11 13:30] VITALS: BP 103/74; PULSE 58; RESP 12; TEMP 36.3; O2SAT 97
--- NOTE | 2024-06-11 13:43 | W.ANESPOSTOP ---
Postoperative Evaluation Date, Time and Location Date Performed: 06/11/24 Time Performed: 13:32 Patient Location: Day Surgery Unit Vital Signs Most Recent Imported Vital Signs: Most Recent Vital Signs Temp Pulse Resp BP Pulse Ox 36.3 C L 58 L 12 103/74 97 06/11/24 13:30 06/11/24 13:30 06/11/24 13:30 06/11/24 13:30 06/11/24 13:30 Pain Score Most Recent Pain Score: Most Recent Pain Score Pain Level 0 06/11/24 13:30 Assessment Mental Status: Awake (Alert & Oriented to Patient Baseline) Airway and Respiratory Function: Patent airway with normal (patient baseline) respiratory exam Cardiovascular Function: Hemodynamically Stable Hydration Status: Adequately Hydrated Nausea & Vomiting: No Nausea or Vomiting Pain: Pt. Denies Any Pain Peripheral Nerve Block: Patient did not receive a nerve block
[2024-06-11 13:53] VITALS: BP 133/85; PULSE 59; RESP 15; TEMP 36.3; O2SAT 95
== END 2024-06-11 15:05 | disposition home or self-care (01) ==
PROVIDERS: PCP Nurse Practitioner Family; Visit Provider Student in an Organized Health Care Education/Training Program
PROC: 0DJD8ZZ Inspection of Lower Intestinal Tract, Via Natural or Artificial Opening Endoscopic (ICD-10-PCS; CPT 45378; principal; 2024-06-11 11:15)
DX: Z12.11 Encounter for screening for malignant neoplasm of colon (principal); K57.30 Diverticulosis of large intestine without perforation or abscess without bleeding; K64.0 First degree hemorrhoids; D12.0 Benign neoplasm of cecum; D12.3 Benign neoplasm of transverse colon
CPT/HCPCS: 45385; 45380; 88305; J2704

== ENCOUNTER → 2024-09-02 07:48 | Outpatient (BNVA) | payer MEDICARE, SELFPAY | PROVIDERS: PCP Nurse Practitioner Family; Referring Provider Nurse Practitioner Family; Visit Provider Podiatrist | DX: B35.1 Tinea unguium (principal); I70.203 Unspecified atherosclerosis of native arteries of extremities, bilateral legs; E11.65 Type 2 diabetes mellitus with hyperglycemia; B35.3 Tinea pedis; E11.42 Type 2 diabetes mellitus with diabetic polyneuropathy; R09.89 Other specified symptoms and signs involving the circulatory and respiratory systems; L65.9 Nonscarring hair loss, unspecified; R23.8 Other skin changes; L60.2 Onychogryphosis; L60.8 Other nail disorders; R25.2 Cramp and spasm | CPT/HCPCS: 11721 ==

== ENCOUNTER → 2024-12-30 07:44 | Outpatient (BNVA) | payer MEDICARE, SELFPAY | PROVIDERS: PCP Nurse Practitioner Family; Referring Provider Nurse Practitioner Family; Visit Provider Podiatrist | DX: B35.1 Tinea unguium (principal); E11.65 Type 2 diabetes mellitus with hyperglycemia; E11.42 Type 2 diabetes mellitus with diabetic polyneuropathy; I70.203 Unspecified atherosclerosis of native arteries of extremities, bilateral legs; B35.3 Tinea pedis; R09.89 Other specified symptoms and signs involving the circulatory and respiratory systems; L65.9 Nonscarring hair loss, unspecified; R23.4 Changes in skin texture; L60.2 Onychogryphosis; L60.8 Other nail disorders; R25.2 Cramp and spasm | CPT/HCPCS: 11721 ==